=== PATIENT | male | born 1960 | race Caucasian/White ===

== ENCOUNTER 2021-04-15 16:35 | Emergency (ER) | payer MEDICARE, OTHER ==
[~2021-04-15 16:35] MED LIST: CIPRO500 MG PO; FLAGYL500 MG PO; ZOFRAN4 MG PO
[2021-04-15] MEDS ORDERED: CEPHALEXIN500 M1 PO (18:43)
== END 2021-04-15 19:00 | disposition home or self-care (01) ==
LOC: ER1 16:35
DX: S81.811A Laceration without foreign body, right lower leg, initial encounter (principal); I25.2 Old myocardial infarction; I10 Essential (primary) hypertension; E78.5 Hyperlipidemia, unspecified; Z88.5 Allergy status to narcotic agent; Z79.899 Other long term (current) drug therapy; F17.200 Nicotine dependence, unspecified, uncomplicated; W17.89XA Other fall from one level to another, initial encounter; Y92.009 Unspecified place in unspecified non-institutional (private) residence as the place of occurrence of the external cause
CPT/HCPCS: 12002; 73590; 99283

== ENCOUNTER → 2021-10-05 | Outpatient (CLI) | payer MEDICARE, OTHER ==
[~2021-10-05] MED LIST changes: +CEPHALEXIN500 M1 PO
== END ==
LOC: KOH-I 15:06
DX: F17.210 Nicotine dependence, cigarettes, uncomplicated (principal); R91.8 Other nonspecific abnormal finding of lung field
CPT/HCPCS: 71271